=== PATIENT | female | born 2000 | race African-American/Black ===

== ENCOUNTER 2020-01-21 18:08 | Emergency (ER) | payer MEDICARE, MEDICAID, SELFPAY ==
--- NOTE | ~2020-01-21 | US_ITS ---
EXAMINATION: US OB <= 14 weeks fetus EXAM DATE: 01/21/2020 21:22 INDICATION: Pelvic pain. . Abdominal cramping. 1st trimester. TECHNIQUE: Pelvic obstetrical transabdominal and transvaginal sonogram was performed by a technologjaxson tabor. There are multiple grayscale and Doppler images available for interpretation. There are no adolph ier studies of this gestation for comparison. FINDINGS: There is no intrauterine identified. Uterus measures 8.0 x 5.0 x 5.2 cm, and is m orphologically normal. Endometrial stripe is not measured but is within normal limits. There is no f ree pelvic fluid. Right adnexa: The ovary measures 3.0 x 1.5 x 3.2 cm and is morphologically normal. Ovarian vascular f low confirmed. Left adnexa: The ovary measures 2.0 x 1.0 x 2.0 cm and is morphologically normal. Ovarian vascular fl ow confirmed. Early intrauterine or recent spontaneous are common causes of elevated beta hCG in absence of intrauterine confirmation. Ultrasound can sometimes identify, but never exclud e an ectopic in the setting of positive beta hCG. IMPRESSION: No intrauterine or extrauterine identified. Follow up as warranted clinically with serial beta hCG levels or ultrasound. Reviewed, dictated and finalized at location A.
[2020-01-21 18:11] VITALS: BP 123/77; PULSE 80; RESP 18; TEMP 36.8; O2SAT 100
--- NOTE | 2020-01-21 18:22 | PC.NURSE ---
Pt states she has lower abd cramping. Pt states pain does not radiate. Pt states she found out she was 1 wk ago. Pt states she started cramping 2 days ago but today was worse. Pt denies urinary symptoms. Pt states she has had no injuries or sex in the last few days. Pt states she has been constipated. Pt has BSx 4. Pt appears in NAD. Pt denies vaginal discharge.
--- NOTE | 2020-01-21 19:03 | ED.ABDPAIN ---
HPI - Abdominal Pain General Chief Complaint: Abdominal Pain Stated Complaint: , abd pain Time Seen by Provider: 01/21/20 19:00 History of Present Illness HPI narrative: Lower abdominal pain for the past 3 days. Constant. Increasing in severity. She Found out she was 1 week ago. Unsure how far along she is. No vaginal bleeding, discharge, hematuria, dysuria, constipation, diarrhea. Related Data Home Medications Medication Instructions Recorded Confirmed No Home Medications 01/21/20 01/21/20 Allergies Allergy/AdvReac Type Severity Reaction Status Date / Time peanut Allergy Swelling Verified 01/21/20 18:13 of Lip/Tongue/Throat Review of Systems Review of Systems: All systems reviewed & are unremarkable except as noted in HPI and below Constitutional: Constitutional: Denies chills and Denies fever(s) Cardiovascular: Cardiovascular: Denies chest pain Respiratory: Respiratory: Denies dyspnea Gastrointestinal: Gastrointestinal: Reports abdominal pain, Denies constipation, Denies diarrhea, Denies nausea and Denies vomiting Genitourinary: Genitourinary: Denies hematuria and Denies dysuria Musculoskeletal: Musculoskeletal: Denies back pain [facility] Social History Social History Gender identity (if verbalized by the patient): Female Exam Const: General: healthy appearing, no acute distress and alert Orientation/consciousness: patient oriented x3 HENMT: Head: normal to inspection Neck: Neck: normal visual inspection and no lymphadenopathy Chest: Chest palpation & inspection: no tenderness Resp: Effort & Inspection: normal respiratory effort Auscultation: clear to auscultation bilaterally, no rales, no rhonchi and no wheezes Cardio: Jugular venous distension: no JVD Rate: regular rate Rhythm: regular rhythm Heart sounds: no murmurs GI: Inspection: non-distended GI Palp: Yes Soft to palpation and Yes Tenderness to palpation present (GI) (suprapubic) Auscultation: Hyperactive bowel sounds present Skin: General skin exam: normal color Neuro: General: patient oriented x3 and moves all extremities Speech: normal speech Extrem: General: normal to inspection and no edema Psych: Appearance: well kempt Affect: normal affect Course Vital Signs Vital signs: Vital Signs Temperature 36.8 C 01/21/20 18:11 Pulse Rate 80 01/21/20 18:11 Respiratory Rate 18 01/21/20 18:11 Blood Pressure 123/77 09/08/20 18:11 Pulse Oximetry 100 01/21/20 18:11 Temperature 36.8 C 01/21/20 18:11 Pulse Rate 68 01/21/20 22:24 Respiratory Rate 19 01/21/20 22:24 Blood Pressure 124/82 01/21/20 22:24 Pulse Oximetry 100 01/21/20 22:24 MDM - Abdominal Pain MDM Narrative Medical decision making narrative: No IUP or ectopic seen. Most likely too early. hcg 1200. She will need repeat labs in a few days. OBGYN's office contacted. They will contact her to arrange follow-up. Differential Diagnosis Differential diagnosis: Likely abdominal pain, constipation and other (ectopic pregancy) Medical Records Attestation: I reviewed the patient's medical records. Lab Data Attestation: I reviewed the patient's lab results. Result diagrams: 01/21/20 19:02 01/21/20 19:02 Labs: Lab Results 01/21/20 01/21/20 01/21/20 Range/Units 19:02 19:02 19:02 WBC 4.5 (4.5-10.0) K/mm3 RBC 4.11 L (4.2-5.4) M/mm3 Hgb 12.1 (12.0-15.0) g/dL Hct 36.6 L (37.0-47.0) % MCV 89.1 (80-100) fl MCH 29.4 (26-34) pg MCHC 33.1 (32-36) g/dl RDW 14.0 (11.5-14.5) % Plt Count 201 (150-375) k/mm3 MPV 12.2 H (7.4-10.4) fl Immature Gran % (Auto) 0.0 (0-0.5) % Neut % (Auto) 49.4 (45.5-73.1) % Lymph % (Auto) 41.8 (18.3-44.2) % [place] % (Auto) 6.6 (2.6-8.5) % Eos % (Auto) 1.8 (0-4.4) % Baso % (Auto) 0.4 (0.2-1.2) % Lymph # (Auto) 1.89 (0.9-3.2) K/mm3 [place] # (Auto) 0.3 (0.1-0.6) K/mm3 Eos #
[2020-01-21 19:19] LABS: Basophils Percent Auto 0.4 % (0.2-1.2); Eosinophils Absolute Auto 0.1 K/mm3 (0-0.3); Eosinophils Percent Auto 1.8 % (0-4.4); Hematocrit 36.6 % (37.0-47.0); Hemoglobin 12.1 g/dL (12.0-15.0); Lymphocytes Absolute Auto 1.89 K/mm3 (0.9-3.2); Lymphocytes Percent Auto 41.8 % (18.3-44.2); Mean Corpuscular HGB Conc 33.1 g/dl (32-36); Mean Corpuscular Hemoglobin 29.4 pg (26-34); Mean Corpuscular Volume 89.1 fl (80-100); Mean Platelet Volume 12.2 fl (7.4-10.4); Monocytes Absolute Auto 0.3 K/mm3 (0.1-0.6); Monocytes Percent Auto 6.6 % (2.6-8.5); Neutrophils Absolute Auto 2.2 K/mm3 (1.3-6.7); Neutrophils Percent Auto 49.4 % (45.5-73.1); Platelet Count Result 201 k/mm3 (150-375); Red Blood Count 4.11 M/mm3 (4.2-5.4); White Blood Count 4.5 K/mm3 (4.5-10.0)
[2020-01-21 19:28] LABS: Add Urine Microscopic? YES; Appearance Urine Clear (Clear); Bacteria Urine Trace /hpf; Bilirubin Urine Negative (Negative); Blood Urine Negative (Negative); Color Urine Yellow (Yellow); Glucose Urine UA Negative (Negative); Ketones Urine Negative (Negative); Leukocyte Esterase Ur Trace LEU/UL (Negative); Mucus Urine Few /lpf; Nitrate Urine Negative (Negative); Protein Urine Negative (Negative); RBC Urine 0-2 /hpf (0-2); Specific Grav Ur 1.017 (1.001-1.035); Squamous Epithelial Cell Urine Few /hpf (Few)
[2020-01-21 19:30] LABS: Alanine Aminotransferase 10 U/L (4-35); Albumin Level 4.7 g/dL (3.5-5.1); Alkaline Phosphatase 53 U/L (38-126); Anion Gap 7 mmol/L (8-16); Aspartate Amino Transferase 20 U/L (14-36); Bilirubin,Total 0.5 mg/dL (0.2-1.3); Blood Urea Nitrogen 10 mg/dL (7-17); Calcium 9.2 mg/dL (8.4-10.2); Carbon Dioxide 25 mmol/L (22-30); Chloride 105 mmol/L (98-107); Estimated CRCL calculation 94 ml/min; Estimated Glomerular Filt Rate > 60; Glucose 92 mg/dL (65-105); Potassium 3.7 mmol/L (3.4-5.0); Sodium 137 mmol/L (137-145)
[2020-01-21 19:58] VITALS: BP 119/76; PULSE 72; RESP 18; O2SAT 100
--- NOTE | 2020-01-21 20:59 | PC.NURSE ---
Patient to ultrasound.
[2020-01-21 22:24] VITALS: BP 124/82; PULSE 68; RESP 19; O2SAT 100
== END 2020-01-21 22:45 | disposition home or self-care (01) ==
PROVIDERS: General Practice; Emergency Provider Emergency Medicine
DX: R10.30 Lower abdominal pain, unspecified (principal); O26.899 Other specified pregnancy related conditions, unspecified trimester; Z3A.00 Weeks of gestation of pregnancy not specified
CPT/HCPCS: 36415; 76801; 80053; 81001; 81025; 84702; 85025; 85461; 99284

== ENCOUNTER 2022-11-03 11:35 | Emergency (ER) | payer MEDICARE, MEDICAID, SELFPAY ==
[2022-11-03 12:20] VITALS: BP 125/87; PULSE 66; RESP 18; TEMP 36.7; O2SAT 100
--- NOTE | 2022-11-03 13:25 | PC.NURSE ---
Patient did not answer page for a room
== END 2022-11-03 13:25 | disposition left against medical advice (07) ==
DX: S99.929A Unspecified injury of unspecified foot, initial encounter (principal)
CPT/HCPCS: 99199